=== PATIENT | female | born 1960 | race Caucasian/White ===

== ENCOUNTER 2016-05-27 14:53 | Day surgery (SDC) | payer OTHER ==
[~2016-05-27] VITALS: Ht 170.2 cm; Wt 75.0 kg
[~2016-05-27 14:53] MED LIST: BUPIVACAINE/PF-EPI 0.25% 1:200K ONE
[2016-05-27] MEDS ORDERED: MIDAZOLAM 1 MG/ML, 2ML ONE (14:55)
[2016-05-27] MEDS ORDERED: FENTANYL PF 250 MCG/5ML ONE (14:55)
[2016-05-27 15:33] VITALS: BP 169/103
[2016-05-27] MEDS ORDERED: LACTATED RINGERS 1,000 ML IV SCH ×2 (15:39→20:07)
[2016-05-27] MEDS ORDERED: IBUP200C75 PO (15:44)
[2016-05-27] MEDS ORDERED: ALPR1TAB2 PO (15:44)
[2016-05-27] MEDS ORDERED: ESTR1PAT25 TD (15:44)
[2016-05-27] MEDS ORDERED: LIDOCAINE 1%, 2ML SQ PRN (16:00)
[2016-05-27 16:02] VITALS: BP 144/88
[2016-05-27] MEDS ORDERED: BUPIVACAINE/PF-EPI 0.25% 1:200K ONE (19:05)
[2016-05-27] MEDS ORDERED: SCOPOLAMINE PATCH, 1.5MG PATCH.TD72 TD ONE (19:18)
[2016-05-27] MEDS ORDERED: ONDANSETRON 2MG/ML, 2ML ONE ×2 (19:20)
[2016-05-27] MEDS ORDERED: NEOSTIGMINE 1 MG/ML, 10ML ONE ×2 (19:20)
[2016-05-27] MEDS ORDERED: GLYCOPYRROLATE 0.2MG/1ML ONE ×2 (19:20)
[2016-05-27] MEDS ORDERED: CEFOTETAN 1 GM ONE ×2 (19:20)
[2016-05-27] MEDS ORDERED: PROPOFOL 10 MG/ML, 20ML ONE ×2 (19:20)
[2016-05-27] MEDS ORDERED: ROCURONIUM 10 MG/ML ONE ×2 (19:20)
[2016-05-27] MEDS ORDERED: FENTANYL PF 100 MCG/2ML ONE (20:19)
[2016-05-27] MEDS ORDERED: OXYcodone 5 MG/5 ML ORAL.SOL UDC ONE (20:20)
[2016-05-27] MEDS ORDERED: ONDANSETRON 2MG/ML, 2ML IVPush PRN ×2 (20:30→21:00)
[2016-05-27] MEDS ORDERED: KETOROLAC 30 MG/1 ML IVPush PRN ×2 (20:30→22:00)
[2016-05-27] MEDS: OXYcodone/APAP 5/325MG TABLET PO PRN ×2 (20:40→23:59)
[2016-05-27] MEDS ORDERED: IBUPROFEN 600 MG TABLET PO SCH (21:00)
[2016-05-27] MEDS ORDERED: MEPERIDINE/PF 25MG/0.5ML IVPush PRN (21:00)
[2016-05-27] MEDS ORDERED: OXYcodone 5 MG/5 ML ORAL.SOL UDC PO PRN (21:00)
[2016-05-27] MEDS ORDERED: FENTANYL PF 100 MCG/2ML IV PRN (21:00)
[2016-05-27] MEDS ORDERED: OXYC-302 PO (21:43)
[2016-05-27] MEDS ORDERED: LORA-446 PO (21:45)
== END 2016-05-28 00:53 | disposition home or self-care (01) ==
LOC: OR 14:53 → 4NOR 21:33 → OR 05-28 00:53
PROVIDERS: ATTEND Specialist
DX: C52 Malignant neoplasm of vagina (principal); Z90.710 Acquired absence of both cervix and uterus; Z90.722 Acquired absence of ovaries, bilateral; Z90.79 Acquired absence of other genital organ(s); Z85.42 Personal history of malignant neoplasm of other parts of uterus; Z82.49 Family history of ischemic heart disease and other diseases of the circulatory system; Z80.3 Family history of malignant neoplasm of breast; Z72.89 Other problems related to lifestyle
CPT/HCPCS: 57100; 88305; 88342; 88360; J2250; J2405; J2704; J2710; J3010; J3490; J7120; S0074; G0461

== ENCOUNTER → 2016-06-03 | Outpatient (CLI) | payer OTHER ==
[~2016-06-03] MED LIST changes: +ALPR1TAB2 PO; -BUPIVACAINE/PF-EPI 0.25% 1:200K ONE; +ESTR1PAT25 TD; +IBUP200C75 PO; +LORA-446 PO; +OXYC-302 PO
== END | disposition home or self-care (01) ==
LOC: PETCFH 07:17
PROVIDERS: ATTEND Specialist
DX: C52 Malignant neoplasm of vagina (principal); Z90.710 Acquired absence of both cervix and uterus
CPT/HCPCS: 78815; A9552

== ENCOUNTER → 2016-07-05 | Outpatient (CLI) | payer OTHER | END | disposition home or self-care (01) | LOC: CFH 09:34 | PROVIDERS: ATTEND Radiology Radiation Oncology | DX: Z51.11 Encounter for antineoplastic chemotherapy (principal); Z51.0 Encounter for antineoplastic radiation therapy; C54.1 Malignant neoplasm of endometrium; N64.4 Mastodynia | CPT/HCPCS: 76641; G0204 ==

== ENCOUNTER 2016-07-09 08:49 | Observation (INO) | payer OTHER ==
[~2016-07-09] VITALS: Ht 172.2 cm; Wt 74.6 kg
[2016-07-09 09:14] VITALS: BP 137/86
[2016-07-09] MEDS ORDERED: SODIUM CHLORIDE 0.9% 1,000 ML IV ONE (10:30)
[2016-07-09 10:32] LABS: BLOOD UREA NITROGEN 12 mg/dL (7-18)
[2016-07-09 10:38] LABS: ASPARTATE AMINO TRANSFERASE 19 U/L (15-37)
[2016-07-09] MEDS: SODIUM CHLORIDE 0.9% 1,000 ML IV SCH (10:44)
[2016-07-09] MEDS ORDERED: HERB1CAP PO (10:55)
[2016-07-09] MEDS ORDERED: DIPHENHYDRAMINE 50 MG/ML, 1ML IVPush ONE (11:30)
[2016-07-09] MEDS ORDERED: FAMOTIDINE 20 MG/2 ML IVPush ONE (11:30)
[2016-07-09] MEDS ORDERED: SODIUM CHLORIDE 0.9% IVPB ONE (11:30)
[2016-07-09] MEDS ORDERED: ONDANSETRON IVPB ONE (11:30)
[2016-07-09] MEDS ORDERED: DEXAMETHASONE IVPB ONE (11:30)
[2016-07-09] MEDS ORDERED: CISPLATIN IV ONE ×2 (12:00)
[2016-07-09] MEDS ORDERED: SODIUM CHLORIDE 0.9% IV ONE ×2 (12:00)
[2016-07-09] MEDS ORDERED: PROCHLORPERAZINE 10MG TABLET PO PRN (12:30)
[2016-07-09] MEDS ORDERED: PROMETHAZINE 25 MG/ML, 1ML IM PRN (12:30)
[2016-07-09] MEDS: LORazepam 1MG TABLET PO PRN ×2 (13:29→20:39)
[2016-07-09] MEDS ORDERED: MANNITOL 25% 12.5 GM in SODIUM CHLORIDE 0.9% 1,000 ML IV SCH (14:00)
[2016-07-09 14:06] VITALS: BP 127/82
[2016-07-09] MEDS ORDERED: ZOLPIDEM 5MG TABLET PO ONE (19:30)
[2016-07-09 20:10] VITALS: BP 138/80
[2016-07-10 01:58] VITALS: BP 126/74
[2016-07-10] MEDS: SODIUM CHLORIDE 0.9% 1,000 ML IV SCH (02:20)
[2016-07-10] MEDS ORDERED: IBUPROFEN 200 MG TABLET PO ONE (05:00)
[2016-07-10 07:39] VITALS: BP 153/88
[2016-07-10] MEDS: LORazepam 1MG TABLET PO PRN (08:07)
== END 2016-07-10 09:40 | disposition home or self-care (01) ==
LOC: 3NW 08:49
PROVIDERS: ADMIT Specialist; ATTEND Specialist
DX: Z51.11 Encounter for antineoplastic chemotherapy (principal); C54.1 Malignant neoplasm of endometrium; F41.9 Anxiety disorder, unspecified; Z85.42 Personal history of malignant neoplasm of other parts of uterus
CPT/HCPCS: 36415; 77412; 80053; 83735; 85025; 96361; 96366; 96367; 96375; 96413; 96415; G0378; J1100; J1200; J2150; J2405; J7030; J7040; J9060; 77387; S0028

== ENCOUNTER 2016-07-15 08:50 | Observation (INO) | payer OTHER ==
[~2016-07-15 08:50] MED LIST changes: +HERB1CAP PO
[2016-07-15] MEDS ORDERED: ONDANSETRON 2 MG/ML ONE (13:00)
[2016-07-15] MEDS ORDERED: SODIUM CHLORIDE 0.9%, 50ML ONE (13:00)
[2016-07-15] MEDS ORDERED: DIPHENHYDRAMINE 50 MG/ML, 1ML ONE (13:00)
[2016-07-15] MEDS ORDERED: FAMOTIDINE 20 MG/2 ML ONE (13:00)
[2016-07-15] MEDS ORDERED: DEXAMETHASONE 4 MG/ML, 1ML ONE (13:00)
[2016-07-15] MEDS ORDERED: MANNITOL 0.25 GM/ML, 50ML ONE (13:00)
[2016-07-15] MEDS ORDERED: SODIUM CHLORIDE 0.9%, 500ML ONE (13:00)
[2016-07-15] MEDS ORDERED: SODIUM CHLORIDE 0.9% 1,000ML ONE ×3 (13:00)
[2016-07-15] MEDS ORDERED: CISPLATIN 1 MG/ML ONE (13:00)
[2016-07-15] MEDS ORDERED: LORazepam 1MG TABLET PO PRN (17:00)
[2016-07-15] MEDS ORDERED: ALPRazolam 1MG TABLET PO PRN (17:00)
[2016-07-15] MEDS ORDERED: LORazepam 1MG TABLET ONE (17:29)
[2016-07-15] MEDS ORDERED: ALPRazolam 1MG TABLET ONE (22:02)
[2016-07-16] MEDS ORDERED: LORazepam 1MG TABLET ONE (06:06)
== END 2016-07-16 12:00 | disposition home or self-care (01) ==
LOC: INTOOBSV 08:50 → 3NW 08:50 → DCLOUNGE 07-16 11:22 → UNDODISIN 07-16 12:00
PROVIDERS: ADMIT Specialist; ATTEND Specialist
DX: C54.1 Malignant neoplasm of endometrium (principal)
CPT/HCPCS: 36415; 77387; 77412; 80053; 83735; 85025; 86304; G0378; J1100; J1200; J2150; J2405; J7030; J7040; J9060; S0028

== ENCOUNTER 2016-07-22 09:20 | Observation (INO) | payer OTHER ==
[~2016-07-22] VITALS: Ht 170.2 cm; Wt 75.0 kg
[2016-07-22 09:52] VITALS: BP 133/88
[2016-07-22 12:07] LABS: ASPARTATE AMINO TRANSFERASE 17 U/L (15-37); BLOOD UREA NITROGEN 10 mg/dL (7-18)
[2016-07-22 13:57] VITALS: BP 148/93
[2016-07-22] MEDS ORDERED: SODIUM CHLORIDE 0.9% 1,000 ML IV ONE (14:00)
[2016-07-22] MEDS ORDERED: FAMOTIDINE 20 MG/2 ML IVPush ONE (15:30)
[2016-07-22] MEDS ORDERED: ONDANSETRON 16 MG, DEXAMETHASONE 10 MG in SODIUM CHLORIDE 0.9% 50 ML IVPB ONE (15:30)
[2016-07-22] MEDS ORDERED: DIPHENHYDRAMINE 50 MG/ML, 1ML IVPush ONE (15:30)
[2016-07-22] MEDS: SODIUM CHLORIDE 0.9% 1,000 ML IV SCH (15:30)
[2016-07-22] MEDS ORDERED: CISPLATIN IV ONE (16:00)
[2016-07-22] MEDS ORDERED: SODIUM CHLORIDE 0.9% IV ONE (16:00)
[2016-07-22] MEDS ORDERED: ALPRazolam 1MG TABLET PO PRN (18:00)
[2016-07-22] MEDS ORDERED: MANNITOL 25% 12.5 GM in SODIUM CHLORIDE 0.9% 1,000 ML IV ONE (18:00)
[2016-07-22 18:59] VITALS: BP 142/83
[2016-07-22] MEDS: LORazepam 1MG TABLET PO SCH (19:58)
[2016-07-23] MEDS: LORazepam 1MG TABLET PO SCH (02:00)
[2016-07-23 02:07] VITALS: BP 136/88
[2016-07-23 07:05] VITALS: BP 163/92
[2016-07-23] MEDS ORDERED: DEXAMETHASONE INTENSOL 1 MG/ML ORAL SOL PO ONE (08:30)
[2016-07-23] MEDS ORDERED: ACETAMINOPHEN 500 MG TABLET PO PRN (08:30)
[2016-07-23] MEDS ORDERED: DEXAMETHASONE 4 MG TABLET PO ONE (09:00)
== END 2016-07-23 09:43 | disposition home or self-care (01) ==
LOC: INTOOBSV 09:20 → 3NW 09:20
PROVIDERS: ADMIT Specialist; ATTEND Specialist
DX: Z51.11 Encounter for antineoplastic chemotherapy (principal); C54.1 Malignant neoplasm of endometrium; R10.2 Pelvic and perineal pain; R19.7 Diarrhea, unspecified
CPT/HCPCS: 36415; 77387; 77412; 80053; 83735; 85025; 86304; 96361; 96366; 96367; 96375; 96413; 96415; G0378; J1100; J1200; J2150; J2405; J7030; J7040; J9060; S0028

== ENCOUNTER 2016-07-29 08:00 | Observation (INO) | payer OTHER ==
[~2016-07-29] VITALS: Ht 170.9 cm; Wt 74.8 kg
[2016-07-29 09:30] VITALS: BP 146/90
[2016-07-29 09:53] VITALS: BP 146/90
[2016-07-29 10:00] VITALS: BP 146/90
[2016-07-29 10:28] LABS: ASPARTATE AMINO TRANSFERASE 15 U/L (15-37); BLOOD UREA NITROGEN 11 mg/dL (7-18)
[2016-07-29] MEDS: SODIUM CHLORIDE 0.9% 1,000 ML IV SCH (13:00)
[2016-07-29] MEDS ORDERED: DIPHENHYDRAMINE 50 MG/ML, 1ML IVPush ONE ×2 (14:00→17:30)
[2016-07-29] MEDS ORDERED: SODIUM CHLORIDE 0.9% 1,000 ML IV SCH ×2 (14:00→16:00)
[2016-07-29] MEDS ORDERED: ALPRazolam 1MG TABLET PO PRN (14:30)
[2016-07-29] MEDS: LORazepam 1MG TABLET PO PRN (14:39)
[2016-07-29 16:33] VITALS: BP 107/71
[2016-07-29 17:30] VITALS: BP 160/83
[2016-07-29] MEDS ORDERED: FAMOTIDINE 20 MG/2 ML IVPush ONE (17:30)
[2016-07-29] MEDS ORDERED: ONDANSETRON 16 MG, DEXAMETHASONE 10 MG in SODIUM CHLORIDE 0.9% 50 ML IVPB ONE (17:30)
[2016-07-29] MEDS ORDERED: SODIUM CHLORIDE 0.9% IV ONE (18:00)
[2016-07-29] MEDS ORDERED: CISPLATIN IV ONE (18:00)
[2016-07-29] MEDS ORDERED: MANNITOL 25% 12.5 GM in SODIUM CHLORIDE 0.9% 1,000 ML IV ONE (20:00)
[2016-07-29 20:11] VITALS: BP 134/86
[2016-07-30] MEDS: SODIUM CHLORIDE 0.9% 1,000 ML IV SCH ×4 (00:18→05:30)
[2016-07-30 07:56] VITALS: BP 169/103
[2016-07-30] MEDS: LORazepam 1MG TABLET PO PRN ×2 (08:15)
== END 2016-07-30 09:25 | disposition home or self-care (01) ==
LOC: PREINTOOBSV 09:06 → 3NW 09:12
PROVIDERS: ADMIT Specialist; ATTEND Specialist
DX: Z51.11 Encounter for antineoplastic chemotherapy (principal); C54.1 Malignant neoplasm of endometrium; Z82.49 Family history of ischemic heart disease and other diseases of the circulatory system; Z85.42 Personal history of malignant neoplasm of other parts of uterus; Z90.710 Acquired absence of both cervix and uterus
CPT/HCPCS: 36415; 80053; 83735; 85025; 86304; 87324; 96361; 96366; 96367; 96375; 96413; 96415; G0378; J1100; J1200; J2150; J2405; J7030; J7040; J9060; S0028

== ENCOUNTER 2016-08-05 08:34 | Observation (INO) | payer OTHER ==
[~2016-08-05] VITALS: Ht 172.7 cm; Wt 76.1 kg
[2016-08-05 09:14] VITALS: BP 146/93
[2016-08-05 10:12] LABS: BLOOD UREA NITROGEN 8 mg/dL (7-18)
[2016-08-05 10:14] LABS: ASPARTATE AMINO TRANSFERASE 28 U/L (15-37)
[2016-08-05] MEDS ORDERED: LORazepam 0.5MG TABLET PO PRN (10:30)
[2016-08-05] MEDS ORDERED: ALPRazolam 1MG TABLET PO PRN (10:30)
[2016-08-05] MEDS ORDERED: SODIUM CHLORIDE 0.9% 1,000 ML IV SCH ×2 (11:30)
[2016-08-05] MEDS ORDERED: LORazepam 1MG TABLET ONE ×2 (11:55→18:22)
[2016-08-05] MEDS ORDERED: ONDANSETRON 16 MG, DEXAMETHASONE 10 MG in SODIUM CHLORIDE 0.9% 50 ML IVPB ONE (13:00)
[2016-08-05 13:10] VITALS: BP 127/80
[2016-08-05] MEDS ORDERED: DIPHENHYDRAMINE 50 MG/ML, 1ML IVPush ONE (13:30)
[2016-08-05] MEDS ORDERED: FAMOTIDINE 20 MG/2 ML IVPush ONE (13:30)
[2016-08-05] MEDS ORDERED: SODIUM CHLORIDE 0.9% IV ONE (14:00)
[2016-08-05] MEDS ORDERED: CISPLATIN IV ONE (14:00)
[2016-08-05] MEDS ORDERED: MANNITOL 25% 12.5 GM in SODIUM CHLORIDE 0.9% 1,000 ML IV ONE (16:00)
[2016-08-05 19:58] VITALS: BP 151/85
[2016-08-05] MEDS ORDERED: LORazepam 1MG TABLET PO PRN (22:30)
[2016-08-06 02:30] VITALS: BP 150/90
[2016-08-06 07:31] VITALS: BP 173/110
[2016-08-06 08:21] VITALS: BP 156/89
== END 2016-08-06 09:00 | disposition home or self-care (01) ==
LOC: 3NW 08:34
PROVIDERS: ADMIT Specialist; ATTEND Specialist
DX: Z51.11 Encounter for antineoplastic chemotherapy (principal); C54.1 Malignant neoplasm of endometrium; Z85.42 Personal history of malignant neoplasm of other parts of uterus; Z90.710 Acquired absence of both cervix and uterus; Z82.49 Family history of ischemic heart disease and other diseases of the circulatory system
CPT/HCPCS: 36415; 77387; 77412; 80053; 83735; 85025; 86304; 96361; 96366; 96367; 96375; 96413; 96415; G0378; J1100; J1200; J2150; J2405; J7030; J7040; J9060; S0028

== ENCOUNTER → 2016-11-01 | Outpatient (CLI) | payer OTHER | END | disposition home or self-care (01) | LOC: ROC 09:41 → EDSTATUS 12:58 | PROVIDERS: ATTEND Radiology Radiation Oncology | DX: C54.1 Malignant neoplasm of endometrium (principal) | CPT/HCPCS: 99212; G0463 ==

== ENCOUNTER → 2016-11-29 | Outpatient (CLI) | payer OTHER | END | disposition home or self-care (01) | LOC: ROC 10:41 | PROVIDERS: ATTEND Radiology Radiation Oncology | DX: C54.1 Malignant neoplasm of endometrium (principal) | CPT/HCPCS: 99212; G0463 ==

== ENCOUNTER → 2016-12-20 | Outpatient (CLI) | payer OTHER ==
[~2016-12-20] MED LIST changes: +GADOBUTROL 7.5 MMOL/7.5 ML VIAL ONE
== END | disposition home or self-care (01) ==
LOC: CFH 10:19
PROVIDERS: ATTEND Radiology Radiation Oncology
DX: C54.1 Malignant neoplasm of endometrium (principal); Z90.710 Acquired absence of both cervix and uterus; Z98.890 Other specified postprocedural states
CPT/HCPCS: 72197; A9585

== ENCOUNTER → 2017-03-20 | Outpatient (CLI) | payer OTHER ==
[~2017-03-20] MED LIST changes: -GADOBUTROL 7.5 MMOL/7.5 ML VIAL ONE
== END | disposition home or self-care (01) ==
LOC: ROC 10:18
PROVIDERS: ATTEND Radiology Radiation Oncology
DX: C54.1 Malignant neoplasm of endometrium (principal)
CPT/HCPCS: 99213; G0463

== ENCOUNTER → 2017-06-04 | Outpatient (CLI) | payer OTHER | END | disposition home or self-care (01) | LOC: ROC 09:00 | PROVIDERS: ATTEND Radiology Radiation Oncology | DX: C54.1 Malignant neoplasm of endometrium (principal) | CPT/HCPCS: 99213; G0463 ==

== ENCOUNTER → 2017-07-09 | Outpatient (CLI) | payer OTHER | END | disposition home or self-care (01) | LOC: CFH 14:45 | PROVIDERS: ATTEND Radiology Radiation Oncology | DX: N64.4 Mastodynia (principal); Z80.3 Family history of malignant neoplasm of breast; C54.1 Malignant neoplasm of endometrium | CPT/HCPCS: 76642; 77063; 77066 ==

== ENCOUNTER → 2018-02-26 | Outpatient (CLI) | payer OTHER | END | disposition home or self-care (01) | LOC: ROC 13:28 | PROVIDERS: ATTEND Radiology Radiation Oncology | DX: C54.1 Malignant neoplasm of endometrium (principal) | CPT/HCPCS: 99213; G0463 ==

== ENCOUNTER → 2018-03-17 | Outpatient (CLI) | payer OTHER ==
[~2018-03-17] MED LIST changes: +OMNIPAQUE 350 MG/ML, 100ML BOTTLE ONE
== END | disposition home or self-care (01) ==
LOC: CFH 10:53
PROVIDERS: ATTEND Radiology Radiation Oncology
DX: C54.1 Malignant neoplasm of endometrium (principal); Z90.710 Acquired absence of both cervix and uterus; Z77.123 Contact with and (suspected) exposure to radon and other naturally occurring radiation
CPT/HCPCS: 71260; 74177; Q9967

== ENCOUNTER → 2018-08-03 | Outpatient (CLI) | payer OTHER ==
[~2018-08-03] MED LIST changes: -OMNIPAQUE 350 MG/ML, 100ML BOTTLE ONE
== END | disposition home or self-care (01) ==
LOC: CFH 13:22
PROVIDERS: ATTEND Radiology Radiation Oncology
DX: Z12.31 Encounter for screening mammogram for malignant neoplasm of breast (principal)
CPT/HCPCS: 77063; 77067

== ENCOUNTER 2018-08-07 08:46 | Outpatient (CLI) | payer OTHER | END 2018-08-07 23:59 | disposition home or self-care (01) | LOC: ROC 08:46 | PROVIDERS: ATTEND Radiology Radiation Oncology | DX: C54.1 Malignant neoplasm of endometrium (principal); Z85.3 Personal history of malignant neoplasm of breast; Z85.038 Personal history of other malignant neoplasm of large intestine; Z82.49 Family history of ischemic heart disease and other diseases of the circulatory system | CPT/HCPCS: 99213; G0463 ==

== ENCOUNTER 2018-09-14 13:09 | Outpatient (CLI) | payer OTHER ==
[2018-09-14] MEDS ORDERED: OMNIPAQUE 350 MG/ML, 100ML BOTTLE ONE (16:24)
== END 2018-09-14 23:59 | disposition home or self-care (01) ==
LOC: CFH 13:09
PROVIDERS: ATTEND Radiology Radiation Oncology
DX: C54.1 Malignant neoplasm of endometrium (principal); R91.1 Solitary pulmonary nodule; Z90.710 Acquired absence of both cervix and uterus
CPT/HCPCS: 71260; 74177; Q9967

== ENCOUNTER → 2019-02-22 | Outpatient (CLI) | payer MEDICARE | END | disposition home or self-care (01) | LOC: ROC 10:05 | PROVIDERS: ATTEND Radiology Radiation Oncology | DX: C54.1 Malignant neoplasm of endometrium (principal) | CPT/HCPCS: G0463 ==

== ENCOUNTER → 2019-06-30 | Outpatient (CLI) | payer MEDICARE | END | disposition home or self-care (01) | LOC: CFH 14:19 | PROVIDERS: ATTEND Radiology Radiation Oncology | DX: Z12.31 Encounter for screening mammogram for malignant neoplasm of breast (principal); C54.1 Malignant neoplasm of endometrium | CPT/HCPCS: 76641; 77063; 77067 ==

== ENCOUNTER 2019-10-21 10:57 | Outpatient (CLI) | payer MEDICARE | END 2019-10-21 23:59 | disposition home or self-care (01) | LOC: ROC 10:57 | PROVIDERS: ATTEND Radiology Radiation Oncology | DX: Z02.9 Encounter for administrative examinations, unspecified (principal) ==

== ENCOUNTER → 2019-10-21 | Outpatient (CLI) | payer MEDICARE | END | disposition home or self-care (01) | LOC: ROC 07:48 | PROVIDERS: ATTEND Radiology Radiation Oncology | DX: Z08 Encounter for follow-up examination after completed treatment for malignant neoplasm (principal); Z85.42 Personal history of malignant neoplasm of other parts of uterus | CPT/HCPCS: 99212; G0463 ==

== ENCOUNTER → 2020-01-13 | Outpatient (CLI) | payer MEDICARE | END | disposition home or self-care (01) | LOC: ROC 07:44 | PROVIDERS: ATTEND Radiology Radiation Oncology | DX: Z08 Encounter for follow-up examination after completed treatment for malignant neoplasm (principal); Z85.42 Personal history of malignant neoplasm of other parts of uterus | CPT/HCPCS: 99212; G0463 ==

== ENCOUNTER → 2020-07-19 | Outpatient (CLI) | payer MEDICARE ==
[~2020-07-19] MED LIST changes: -OXYC-302 PO; +OXYC1TAB14 PO
== END | disposition home or self-care (01) ==
LOC: CFH 12:13
PROVIDERS: ATTEND Radiology Radiation Oncology
DX: Z12.31 Encounter for screening mammogram for malignant neoplasm of breast (principal); Z12.39 Encounter for other screening for malignant neoplasm of breast
CPT/HCPCS: 76641; 77063; 77067

== ENCOUNTER → 2020-07-20 | Outpatient (CLI) | payer MEDICARE | END | disposition home or self-care (01) | LOC: ROC 08:09 | PROVIDERS: ATTEND Radiology Radiation Oncology | DX: Z08 Encounter for follow-up examination after completed treatment for malignant neoplasm (principal); C54.1 Malignant neoplasm of endometrium | CPT/HCPCS: 99212; G0463 ==